=== PATIENT | male | born 1960 | race Caucasian/White ===

== ENCOUNTER 2020-11-10 00:24 | Outpatient (CLI) | payer BC, SELFPAY ==
[2020-11-10 18:27] LABS: SARS-CoV-2 RNA PCR Negative
== END 2020-11-10 00:25 | disposition home or self-care (01) ==
LOC: ANHCOVIDDT 00:24
PROVIDERS: Visit Provider Urology
DX: Z01.812 Encounter for preprocedural laboratory examination (principal); Z20.822 Contact with and (suspected) exposure to COVID-19
CPT/HCPCS: C9803; U0003; U0005

== ENCOUNTER 2020-11-13 01:11 | Day surgery (SDC) | payer BC, SELFPAY ==
--- NOTE | 2020-11-05 14:08 | P.HP_ITS ---
History of Present Illness History of Present Illness Consent: Risks, benefits, and alternatives have been discussed and questions answered. Patient agrees to proceed with procedure. Chief complaint: prostate CA Narrative: Chau Vargas is a 59 year old male who is a patient of Dr. Ronald Harrison that recently presented with a PSA of 9.7ng/dl. He was diagnosed with clinically localized adenocarcinoma of the prostate and is scheduled for definitive pelvic IMRT. He's opted for placement of SpaceOAR to minimize risk of rectal irritation. Review of Systems Cardiovascular: Cardiovascular: Denies chest pain, Denies lightheadedness, Denies palpitations and Denies dyspnea Respiratory: Respiratory: Denies dyspnea Gastrointestinal: Gastrointestinal: Denies diarrhea, Denies nausea and Denies vomiting Genitourinary: Genitourinary: Denies hematuria and Denies dysuria Endocrine: Endocrine: Denies palpitations PMFSH Family History Family History Other Diabetes mellitus Family history of cardiovascular disease Hypertension Social History Social History Smoking status: Current every day smoker Alcohol intake: current Meds Home Medications and Allergies Allergies Allergy/AdvReac Type Severity Reaction Status Date / Time Penicillins Allergy Unknown Verified 09/08/10 08:39 PCN Allergy Mild Rash Uncoded 04/28/05 12:43 Exam Const: General: no acute distress Resp: Effort & Inspection: normal respiratory effort GI: Inspection: non-distended GI Palp: No abdominal tenderness and No Guarding due to palpation present (GI) Auscultation: normal bowel sounds Assessment and Plan Assessment and plan (1) Prostate cancer: Code(s): C61 - Malignant neoplasm of prostate Status: Acute Assessment and Plan: * Transrectal ultrasound with transperineal placement of SpaceOAR. Pt. aware of risks of this procedure including, but not limited to, rectal injury, urinary tract infection with possible sepsis or septic shock, hematuria and inability to deliver the SpaceOAR. He also aware there is no alternative procedure to accomplish the same ends at this time.
[2020-11-05 16:04] VITALS: BMI 31.0
--- NOTE | 2020-11-12 13:55 | WPDANESEPPF ---
Anes - Initial Pre Proc Eval Procedure: Operation Date: 11/13/20 14:30 Proposed Procedures p Insertion SpaceOAR Hydrogel System - Francisco J Baker MD Date/Time: 11/12/20 13:55 Surgeon: Francisco J Baker MD Pre Op Diagnosis: prostate CA Patient Data Age: 59 Gender: M Height: 1.75 m Weight: 95.45 kg Allergies Allergy/AdvReac Type Severity Reaction Status Date / Time Penicillins Allergy Unknown Rash Verified 11/13/20 12:36 Home Medications Medication Instructions Recorded Confirmed Type albuterol sulfate 2 puff INHALATION PRN PRN 11/05/20 11/05/20 History allopurinol 300 mg DAILY 11/05/20 11/13/20 History aspirin [Aspirin Low Dose] 81 mg PO DAILY 11/05/20 11/13/20 History dexlansoprazole [Dexilant] 60 mg DAILY 11/05/20 11/13/20 History empagliflozin [Jardiance] 10 mg DAILY 11/05/20 11/13/20 History fluticasone propion-salmeterol 1 inh INHALATION DAILY 11/05/20 11/13/20 History [Advair Diskus] hydrocodone-acetaminophen 1 tablet PRN 11/05/20 11/05/20 History levothyroxine 100 mcg DAILY 11/05/20 11/13/20 History lisinopril 20 mg DAILY 11/05/20 11/13/20 History metformin 500 mg BID 11/05/20 11/13/20 History multivitamin [Multi-Vitamin] 1 tablet PO DAILY 11/05/20 11/13/20 History pregabalin [Lyrica] 150 mg BID 11/05/20 11/13/20 History rosuvastatin [Crestor] 20 mg DAILY 11/05/20 11/13/20 History semaglutide [Rybelsus] 7 mg PO DAILY 11/05/20 11/13/20 History tiotropium bromide [Spiriva with 1 cap INHALATION DAILY 11/05/20 11/13/20 History HandiHaler] Patient hx anesthesia problems: none Family hx anesthesia problems: none PMFSH Past Medical History Medical History (Updated 11/12/20 @ 13:56 by Toñito Gomes MD) CAD (coronary artery disease) COPD (chronic obstructive pulmonary disease) Diabetes HTN (hypertension) Hypercholesterolemia Hypothyroidism Obesity Surgical History Surgical History (Updated 11/12/20 @ 13:56 by Toñito Gomes MD) S/P CABG (coronary artery bypass graft) Family History Family History Other Diabetes mellitus Family history of cardiovascular disease Hypertension Social History Social History Smoking packs per day: 1.5 Smoking cigarettes per day: 30.0 Years smoked: 26 Smoking pack-years: 39.00 Smoking status: Former smoker Tobacco type: cigarettes Second hand tobacco smoke exposure: No Additional smoking assessment comments: QUIT 2009 Alcohol intake: current Drinks per week: 1 Substance use: never Substance use type: does not use Living arrangements: with family Spiritual care concerns: No Anes - Eval Final PreProcedure Day of Procedure 11/12/20 13:55 Patient weight: obese Heart: regular rate and rhythm Lungs: clear to auscultation and normal air movement Airway: Mallampati scale class II Neurological: alert and oriented Last oral intake: >/= 8 hours ASA classification: III Emergent: no Anesthetic plan: proceed Anesthesia type and monitoring: general GIVS and LMA Informed Consent: The patient's anesthetic plan and its attendant risks and benefits were discussed with the patient/family/POA. Questions were solicited and answers provided to the satisfaction of the patient/family/POA.
[2020-11-13] VITALS (7 sets, daily range): BP systolic 118–145; BP diastolic 69–99; PULSE 75–92; RESP 16; TEMP 36.2–36.6; O2SAT 95–100
--- NOTE | 2020-11-13 07:15 | WPDHPUPDATE1 ---
History and Physical Update Update Date/Time: 11/13/20 07:15 History and Physical has been reviewed, including an updated exam of the patient. There are NO changes in the patient's condition. Risks, benefits, and alternatives have been discussed and questions answered. Patient agrees to proceed with procedure.
[2020-11-13] MEDS: LACTATED RINGERS 1,000 ML 30 ML IV CONT (13:19)
[2020-11-13 13:45] LABS: Glucose Point of Care 101 (65-105)
--- NOTE | 2020-11-13 15:08 | P.OP_ITS ---
Procedure Note - Detailed Date of procedure: 11/13/20 Pre-op diagnosis: prostate CA Post-op diagnosis: same Procedure performed: Placement of SpaceOAR Description of procedure: This patient has been diagnosed with prostate cancer. Patient has met with a radiation oncologist who has prescribed a course of radiation for treatment of the malignancy. Please refer to the Radiation Oncologist's note for radiation method, dose, number of fractions. After discussing with the radiation oncologist and the patient, it has been agreed upon to proceed with SpaceOAR placement. The purpose of SpaceOAR is to reduce rectal irradiation during radiation therapy by placing an absorbable polyethylene glycol (PEG) hydrogel (SpaceOAR) into perirectal fat space, thereby pushing the rectum away from the prostate. Prior to the procedure, a timeout was performed confirming the patient's identity and planned the procedure. Anesthesia was induced without complication. Antibiotics were administered prophylactically, and the patient completed an enema at home prior to the procedure. The patient was positioned in the dorsal lithotomy position. A transrectal ultrasound probe was inserted per rectum with clear visualization of the prostatic base and apex. SpaceOAR hydrogel was prepared as described in the farm service consultant?s 'Instructions For Use'. Under transrectal ultrasound guidance, a 15 cm 18G needle was inserted, transperineal, through the rectourethralis muscle and the needle tip advanced into the perirectal fat posterior to the prostate. The needle position, and downward bevel, were confirmed in both sagittal and axial mcguire. 3-5cc of Sterile Saline was used to hydro-dissect the space between the Denonvilliers? fascia and anterior rectal wall. Aspiration did not yield any bleeding. With the needle tip at mid gland, the axial field was viewed to confirm the needle was not in the rectal wall -- movement of the needle tip without corresponding movement of the rectal wall confirmed perirectal placement. The assembled SpaceOAR delivery system was then attached to the 18G needle. Under ultrasound guidance in the sagittal plane, a smooth, continuous injection technique was used to dispense all 10cc of the SpaceOAR hydrogel into the space between the prostate and rectum. Optimal visualization of the needle during hydrogel administration was maintained at all times. An axial measurement of the space between the prostate (mid gland) and rectum immediately post-SpaceOAR injection was noted and measured [73mm]. No suspected penetration or compromise of the rectal wall occurred. Anesthesia: MAC Surgeon: Francisco J Baker MD Estimated blood loss (mL): 0 Drains: No Packing: No Pathology: none sent Complications: No immediate complications Condition: stable
[2020-11-13 15:13] LABS: Glucose Point of Care 111 (65-105)
== END 2020-11-13 16:27 | disposition home or self-care (01) ==
PROVIDERS: Visit Provider Urology
PROC: (CPT 55874; principal; 2020-11-13 14:30)
DX: C61 Malignant neoplasm of prostate (principal); Z79.82 Long term (current) use of aspirin; Z79.84 Long term (current) use of oral hypoglycemic drugs; Z79.51 Long term (current) use of inhaled steroids; E03.9 Hypothyroidism, unspecified; I25.10 Atherosclerotic heart disease of native coronary artery without angina pectoris; J44.9 Chronic obstructive pulmonary disease, unspecified; E11.9 Type 2 diabetes mellitus without complications; I10 Essential (primary) hypertension; E78.00 Pure hypercholesterolemia, unspecified; E66.9 Obesity, unspecified; Z68.31 Body mass index [BMI] 31.0-31.9, adult; Z87.891 Personal history of nicotine dependence; Z95.1 Presence of aortocoronary bypass graft
CPT/HCPCS: 55874; C1889; J2370; J2405; J2704; J7120